=== PATIENT | female | born 1945 | race Caucasian/White ===

== ENCOUNTER 2023-03-27 11:55 | Emergency (ER) | payer MEDICARE, OTHER ==
[~2023-03-27] VITALS: Ht 166.4 cm; Wt 72.0 kg
[2023-03-27 12:05] VITALS: BP 150/61; PULSE 78; RESP 18; TEMP 97.5; O2SAT 98
[2023-03-27] MEDS ORDERED: rabies immune globulin/PF 150 unit/ml inj IMVAC STA (15:15)
[2023-03-27] MEDS ORDERED: rabies vaccine (PCEC)/PF 2.5 unit kit IMVAC ONE (15:15)
[2023-03-27] MEDS ORDERED: RABIES IMMUNE GLOBULIN/PF 300 UNIT/ML VIAL IMVAC ONE (15:30)
[2023-03-27] MEDS ORDERED: rabies immune globulin/PF 150 unit/ml inj IMVAC ONE (15:30)
[2023-03-27] MEDS ORDERED: AMOX-580 PO (16:15)
== END 2023-03-27 16:32 | disposition home or self-care (01) ==
LOC: ER 11:56
DX: S81.832A Puncture wound without foreign body, left lower leg, initial encounter (principal); W55.51XA Bitten by raccoon, initial encounter; Y93.89 Activity, other specified; Y92.89 Other specified places as the place of occurrence of the external cause; Y99.8 Other external cause status
CPT/HCPCS: 73590; 90376; 90471; 90675; 96372; 99284

== ENCOUNTER 2023-03-30 09:41 | Emergency (ER) | payer MEDICARE, OTHER ==
[~2023-03-30] VITALS: Ht 166.4 cm; Wt 72.2 kg
[~2023-03-30 09:41] MED LIST: AMOX-580 PO
[2023-03-30 09:45] VITALS: BP 148/63; PULSE 68; RESP 16; TEMP 98; O2SAT 96
[2023-03-30] MEDS ORDERED: rabies vaccine (PCEC)/PF 2.5 unit kit IMVAC ONE (10:00)
--- NOTE | 2023-03-30 10:42 | NUR ---
PER TY RN HE WILL ASSESS PT/GIVE MED/DC D/T RN GETTING HIGH ACUITY PT.
== END 2023-03-30 10:58 | disposition home or self-care (01) ==
LOC: ER 09:42
DX: Z23 Encounter for immunization (principal); Z88.5 Allergy status to narcotic agent; Z79.2 Long term (current) use of antibiotics
CPT/HCPCS: 90471; 90675; 99281

== ENCOUNTER 2023-04-03 08:35 | Emergency (ER) | payer MEDICARE, OTHER ==
[~2023-04-03] VITALS: Ht 165.1 cm; Wt 68.2 kg
[2023-04-03 08:40] VITALS: BP 140/59; PULSE 62; RESP 20; TEMP 97.5; O2SAT 99
[2023-04-03] MEDS ORDERED: rabies vaccine (PCEC)/PF 2.5 unit kit IMVAC ONE (09:45)
== END 2023-04-03 10:02 | disposition home or self-care (01) ==
LOC: ER 08:35
DX: Z20.3 Contact with and (suspected) exposure to rabies (principal); Z88.5 Allergy status to narcotic agent
CPT/HCPCS: 90471; 90675; 99281; 99283

== ENCOUNTER 2023-04-10 08:40 | Emergency (ER) | payer MEDICARE, OTHER ==
[~2023-04-10] VITALS: Ht 165.1 cm; Wt 75.0 kg
[2023-04-10 08:42] VITALS: BP 144/66; PULSE 58; RESP 18; TEMP 97.9; O2SAT 99
[2023-04-10] MEDS ORDERED: rabies vaccine (PCEC)/PF 2.5 unit kit IMVAC ONE (08:50)
== END 2023-04-10 08:58 | disposition home or self-care (01) ==
LOC: ER 08:40
DX: Z20.3 Contact with and (suspected) exposure to rabies (principal); Z79.899 Other long term (current) drug therapy
CPT/HCPCS: 90471; 90675; 99281